=== PATIENT | female | born 1990 | race Two or more races ===

== ENCOUNTER 2017-08-17 10:12 | Emergency (ER) | payer OTHER ==
[2017-08-17 10:24] VITALS: BP 111/65; PULSE 72; TEMP 99.2; BMI 36.8
[2017-08-17] MEDS ORDERED: TETANUS AND DIPHTHERIA TOXOID 0.5 ML DISP.SYRIN IM ONE (10:56)
--- NOTE | 2017-08-17 11:01 | PDOC ---
Post Exposure HPI - General Chief Complaint: Blood/Body Fluid Exposure SJR Stated Complaint: NEEDLE STICK Time Seen by Provider: 08/17/17 10:55 History Source: Patient Exam Limitations: No Limitations - History of Present Illness Initial Comments: 08/17/17 10:[address] Hendrix's office, [facility] sustained a needlestick injury from a Vacutainer that was our to used to her right thumb. Washed with soap and water, alcohol. was able to identify her's source patient who is well known to their office and currently under treatment for cancer and obtained testing for hepatitis B, C and HIV disease. Timing: this morning Exposed Location: Right: Finger(s) (thumb) Assessing Significant Risk PEP: Yes Percutaneous, Yes Blood, Yes Potentially Infectious Fluid Past History - Travel Traveled outside of the country in the last 30 days: No Close contact w/someone who was outside of country & ill: No - Past Medical History Allergies/Adverse Reactions: Allergies Allergy/AdvReac Type Severity Reaction Status Date / Time Iodinated Contrast- Oral and Allergy Verified 08/17/17 10:20 IV Dye Home Medications: Ambulatory Orders NK [No Known Home Medication] 07/06/16 Anemia: Yes Cancer: Yes (Breast, Colon) COPD: No - Surgical History Cholecystectomy: Yes GI Surgery: Yes (COLON RESECTION) - Immunization History Immunization Up to Date: Yes - Suicide/Smoking/Psychosocial Hx Smoking History: Never smoked Hx Alcohol Use: No Drug/Substance Use Hx: No Substance Use Type: None Review of Systems - Review of Systems Able to Perform ROS?: Yes Is the patient limited Cypriot proficient: Yes Constitutional: Yes: Symptoms Reported, See HPI HEENTM: Yes: See HPI. No: Symptoms Reported Respiratory: Yes: See HPI. No: Symptoms reported Musculoskeletal: Yes: See HPI. No: Symptoms Reported Integumentary: Yes: Symptoms Reported *Physical Exam - Vital Signs Last Vital Signs Temp Pulse Resp BP Pulse Ox 99.2 F 72 19 111/65 99 08/17/17 10:20 08/17/17 10:20 08/17/17 10:20 08/17/17 10:20 08/17/17 10:20 - Physical Exam General Appearance: Yes: Nourished, Appropriately Dressed, Apparent Distress HEENT: positive: IRINA, Normal ENT Inspection, TMs Normal, Pharynx Normal Neck: positive: Supple. negative: Tender, Lymphadenopathy (R), Lymphadenopathy (L) Respiratory/Chest: positive: Lungs Clear, Normal Breath Sounds Extremity: positive: Normal Capillary Refill, Normal Inspection, Normal Range of Motion Integumentary: positive: Normal Color, Dry, Warm, Other (puncture wound noted to the ulnar aspect of left thumb proximal phalanx, has full range of motion of thumb, no bruising or other deformity noted.) Neurologic: positive: roll off driver II-XII NML intact, Fully Oriented, Alert, Normal Mood/ Affect Post Exposure - ED Protocol - Exposure Treatment Washing/Decontamination: Soap/Water Source Patient HIV Status:: Unknown Is PEP indicated?: Yes Prophylaxis for HIV discussed?: Yes Prophylaxis given?: No Prophylaxis refused?: Yes Additional Treatment:: DT - Referrals Employee Referred to Employee Health:: Yes Progress Note - Progress Note Progress Note: Discussed HIV and hepatitis risks with puncture wound. Patient is well versed on prophylaxis and exposure protocols and has refused PEP. Tetanus is not up-to- date therefore that will be updated today, hepatitis B vaccines are up-to-date. Understands Baseline labs taken today and will follow up with occupational health for future testing. Source patient has been tested was well known to employee. Medical Decision Making - Medical Decision Making 08/17/17 12:34 HIV testing negative, remainder of labs within normal limits. Patient understands follow-up and will complete in occupational/employee health. *DC/Admit/Observation/Transfer Diagnosis at time of Disposition: Accidental needlestick injury with exposure to body fluid - Discharge Dispostion Disposition: HOME Condition at time of disposition: Stable Admit: No - Referrals - Patient Instructions Printed Discharge Instructions: How to Handle Body Fluid Exposure -- Healthcare Worker Additional Instructions: Rest, keep wound clean and dry, cover with bacitracin and Band-Aid until healed Baseline laboratory work obtained today You will need repeat testing in 3-6 months from occupational health Tetanus/diphtheria/pertussis booster was updated today - Post Discharge Activity Forms/Work/School Notes: Back to Work
[2017-08-17 11:22] LABS: BASO % 0.9 % (0-2.0); EOS % 0.7 % (0-4.5); HEMOGLOBIN 11.2 GM/dL (10.7-15.3); LYMPH % 27.9 % (8-40); MCH 23.1 pg (25.7-33.7); MCHC 31.2 g/dl (32.0-36.0); MEAN PLT VOLUME 8.5 fl (7.5-11.1); MONO % 9.6 % (3.8-10.2); NEUT % 60.9 % (42.8-82.8); PLATELET COUNT 239 K/MM3 (134-434); RBC 4.87 M/mm3 (3.60-5.2); RDW 15.1 % (11.6-15.6); WHITE BLOOD COUNT 6.7 K/mm3 (4.0-10.0)
[2017-08-17 11:25] LABS: HCG,QUALITATIVE URINE NEGATIVE
[2017-08-17 11:26] LABS: URINE APPEARANCE TURBID; URINE BILIRUBIN NEGATIVE (NEGATIVE); URINE BLOOD NEGATIVE (NEGATIVE); URINE COLOR YELLOW; URINE GLUCOSE (UA) NEGATIVE (NEGATIVE); URINE KETONE NEGATIVE (NEGATIVE); URINE LEUK ESTERASE NEGATIVE (NEGATIVE); URINE NITRITE NEGATIVE (NEGATIVE); URINE PROTEIN NEGATIVE (NEGATIVE); URINE UROBILINOGEN NEGATIVE mg/dL (0.2-1.0)
[2017-08-17 11:38] LABS: ALBUMIN 3.6 g/dl (3.4-5.0); ANION GAP 3 (8-16); BLOOD UREA NITROGEN 13 mg/dL (7-18); CHLORIDE 106 mmol/L (98-107); CHOLESTEROL 165 mg/dL (50-200); CO2 29 mmol/L (21-32); CREATININE 0.7 mg/dL (0.55-1.02); GAMMA GLUTAMYL TRANSPEPTIDASE 16 U/L (5-85); GLUCOSE,RANDOM 78 mg/dL (74-106); LDH 153 U/L (84-246); PHOSPHOROUS 3.1 mg/dL (2.5-4.9); POTASSIUM 3.9 mmol/L (3.5-5.1); SGOT/AST 16 U/L (15-37); SGPT/ALT 30 U/L (12-78); SODIUM 138 mmol/L (136-145); TOT PROT 7.2 g/dl (6.4-8.2); TRIGLYCERIDES 108 mg/dL (35-160); URIC ACID 4.5 mg/dL (2.6-7.2)
[2017-08-17 11:40] LABS: ALK PHOS 66 U/L (45-117); BILIRUBIN,TOTAL 0.4 mg/dL (0.2-1.0)
[2017-08-18 08:57] LABS: HBsAG SCREEN Negative (Negative); HEPATITIS B CORE ANTIBODY Negative (Negative)
== END 2017-08-17 12:39 | disposition home or self-care (01) ==
LOC: JERFT 10:12
PROC: 3E0234Z Introduction of Serum, Toxoid and Vaccine into Muscle, Percutaneous Approach (ICD-10-PCS; principal; 2017-08-17)
DX: Z77.21 Contact with and (suspected) exposure to potentially hazardous body fluids (principal); S61.032A Puncture wound without foreign body of left thumb without damage to nail, initial encounter; W46.1XXA Contact with contaminated hypodermic needle, initial encounter; Y93.F9 Activity, other caregiving; Y92.238 Other place in hospital as the place of occurrence of the external cause; Y99.0 Civilian activity done for income or pay; Z85.038 Personal history of other malignant neoplasm of large intestine; Z85.3 Personal history of malignant neoplasm of breast
CPT/HCPCS: 36415; 80053; 81003; 82465; 82977; 83615; 84100; 84478; 84550; 84703; 85025; 86704; 86803; 87340; 87389; 99282-25

== ENCOUNTER 2017-12-15 10:48 | Emergency (ER) | payer OTHER ==
[2017-12-15 11:03] VITALS: BP 101/49; PULSE 85; TEMP 98.8; BMI 37.0
--- NOTE | 2017-12-15 11:14 | PDOC ---
History of Present Illness - General Chief Complaint: Sore Throat Stated Complaint: SORE THROAT Time Seen by Provider: 12/15/17 10:57 - History of Present Illness Initial Comments: Female presents for evaluation of sore throat 5 days. She complains of fever about 3 days ago she took Motrin which resolved her fever and her throat has been consistent. She denies chills or night sweats. 12/15/17 11:11 Past History - Past Medical History Allergies/Adverse Reactions: Allergies Allergy/AdvReac Type Severity Reaction Status Date / Time Iodinated Contrast- Oral and Allergy Verified 12/15/17 10:50 IV Dye Home Medications: Ambulatory Orders Amoxicillin - [Amoxicillin 500mg Capsule -] 500 mg PO DAILY #30 capsule Methylprednisolone [Medrol Dose Ryan] 4 mg PO ASDIR #21 tablet 12/15/17 Anemia: Yes Cancer: Yes (Breast, Colon) COPD: No HTN: No (LOW BP) - Surgical History Abdominal Surgery: Yes (ECTOPIC) Cholecystectomy: Yes GI Surgery: Yes (COLON RESECTION) - Immunization History Immunization Up to Date: Yes - Suicide/Smoking/Psychosocial Hx Smoking History: Never smoked Have you smoked in the past 12 months: No Information on smoking cessation initiated: No Hx Alcohol Use: No Drug/Substance Use Hx: No Substance Use Type: None Review of Systems - Review of Systems Constitutional: Yes: Fever, Malaise. No: Chills, Diaphoresis, Night Sweats HEENTM: Yes: Throat Pain, Throat Swelling, Mouth Pain, Difficulty Swallowing. No: Ear Pain, Ear Discharge, Mouth Swelling Respiratory: No: Cough, SOB with Exertion Cardiac (ROS): No: Chest Pain ABD/GI: No: Nausea, Vomiting All Other Systems: Reviewed and Negative *Physical Exam - Vital Signs Last Vital Signs Temp Pulse Resp BP Pulse Ox 98.8 F 85 18 101/49 100 12/15/17 10:50 12/15/17 10:50 12/15/17 10:50 12/15/17 10:50 12/15/17 10:50 - Physical Exam Comments: General Appearance: Well-developed, well-nourished A&O 3 NAD Head: NC/AT Eyes: vision is grossly intact Ears: External auditory canals are normal and clear; tympanic membranes are normal; hearing is grossly intact Nose: Normal no discharge Throat and Oral cavity: Pharynx imjected with mild swelling no exudate no lesions teeth and gingiva are normal Neck: Supple nontender without lymphadenopathy masses or thyromegaly Cardiac: S1 and S2 without murmurs no peripheral edema cyanosis or pallor; extremities are warm and well-perfused; capillary refill is less than 2 seconds without carotid bruits Lungs: CTA and Percussion no rales or rhonchi or wheezing breath sounds are full bilaterally Abdomen: Positive bowel sounds; soft nondistended, nontender, no guarding or rebound tenderness; no masses Musculoskeletal; Adequately aligned spine range of motion intact to spine and extremities Neurologic: Cranial nerves II-XII are grossly intact strength and sensation are symmetric and intact cerebellar testing is negative Skin: Normal color and temperature normal texture turgor no lesions or eruptions 12/15/17 11:12 Medical Decision Making - Medical Decision Making Strep positive culture with amoxicillin and Medrol Dosepak follow-up with her PCP in 3-4 days return to the emergency room symptoms worsen or don't resolve prior to follow-up 12/15/17 11:30 *DC/Admit/Observation/Transfer Diagnosis at time of Disposition: Strep pharyngitis - Discharge Dispostion Condition at time of disposition: Stable Decision to Admit order: No - Referrals Referrals: Koffi Cole MD [Staff Physician] - - Patient Instructions Printed Discharge Instructions: DI for Strep Throat, Strep Throat Additional Instructions: Warm salt water gargles 5-6 times daily Tylenol if needed. Return to the emergency room if symptoms increase or don't resolve prior to follow-up - Post Discharge Activity
[2017-12-15] MEDS ORDERED: AMOXICILLIN 500 MG CAPSULE (FP) PO ONE (11:38)
[2017-12-15] MEDS ORDERED: PENICILLIN G BENZATHINE 2,400,000 UNIT/4 ML PFS ONE (11:41)
[2017-12-15] MEDS ORDERED: AMOXICILLIN 250 MG CAPSULE ONE (11:43)
== END 2017-12-15 11:48 | disposition home or self-care (01) ==
LOC: JER 10:48
DX: J02.0 Streptococcal pharyngitis (principal); B95.0 Streptococcus, group A, as the cause of diseases classified elsewhere; Z85.038 Personal history of other malignant neoplasm of large intestine; Z85.3 Personal history of malignant neoplasm of breast
CPT/HCPCS: 87070; 87430; 99281-25

== ENCOUNTER 2018-05-11 11:34 | Day surgery (SDC) | payer OTHER ==
[2018-05-11] MEDS ORDERED: IRON SUCROSE INJECTION 200 MG in SODIUM CHLORIDE 100 ML IVPB ONE (12:45)
[2018-05-11 14:43] VITALS: TEMP 98.2
[2018-05-11 14:45] VITALS: BP 98/60; PULSE 69
== END 2018-05-11 14:25 | disposition home or self-care (01) ==
LOC: JONCNONCHE 11:34 → J7W 12:25 → JONCNONCHE 14:25
PROVIDERS: ATTEND Internal Medicine Hematology & Oncology
PROC: 3E033GC Introduction of Other Therapeutic Substance into Peripheral Vein, Percutaneous Approach (ICD-10-PCS; principal; 2018-05-11)
DX: D50.9 Iron deficiency anemia, unspecified (principal)
CPT/HCPCS: 36415; 82962; 83021; 85660; 96365; J1756

== ENCOUNTER 2018-05-19 07:39 | Day surgery (SDC) | payer OTHER ==
[2018-05-19] MEDS ORDERED: IRON SUCROSE INJECTION 200 MG in SODIUM CHLORIDE 100 ML IVPB ONE (10:00)
[2018-05-19 17:59] VITALS: TEMP 98
[2018-05-19 18:03] VITALS: BP 101/59; PULSE 74
== END 2018-05-19 14:45 | disposition home or self-care (01) ==
LOC: JONCNONCHE 07:39 → J7W 13:59 → JONCNONCHE 14:45
PROVIDERS: ATTEND Internal Medicine Hematology & Oncology
PROC: 3E033GC Introduction of Other Therapeutic Substance into Peripheral Vein, Percutaneous Approach (ICD-10-PCS; principal; 2018-05-19)
DX: D50.9 Iron deficiency anemia, unspecified (principal)
CPT/HCPCS: 96365; J1756

== ENCOUNTER 2018-05-26 07:30 | Day surgery (SDC) | payer OTHER ==
[2018-05-26 08:47] VITALS: BP 104/54; PULSE 61
[2018-05-26] MEDS ORDERED: IRON SUCROSE INJECTION 200 MG in SODIUM CHLORIDE 100 ML IVPB ONE (10:00)
== END 2018-05-26 09:15 | disposition home or self-care (01) ==
LOC: JONCNONCHE 07:30 → J7W 08:24 → JONCNONCHE 09:15
PROVIDERS: ATTEND Internal Medicine Hematology & Oncology
PROC: 3E033GC Introduction of Other Therapeutic Substance into Peripheral Vein, Percutaneous Approach (ICD-10-PCS; principal; 2018-05-26)
DX: D50.9 Iron deficiency anemia, unspecified (principal)
CPT/HCPCS: 96365; J1756

== ENCOUNTER 2018-06-02 07:49 | Day surgery (SDC) | payer OTHER ==
[2018-06-02] MEDS ORDERED: IRON SUCROSE INJECTION 200 MG in SODIUM CHLORIDE 100 ML IVPB ONE (10:00)
[2018-06-02 12:07] VITALS: BP 104/50; PULSE 80; TEMP 98.2
== END 2018-06-02 12:08 | disposition home or self-care (01) ==
LOC: JONCCHEMO 07:49 → J7W 11:30 → JONCCHEMO 12:08
PROVIDERS: ATTEND Internal Medicine Hematology & Oncology
PROC: 3E033GC Introduction of Other Therapeutic Substance into Peripheral Vein, Percutaneous Approach (ICD-10-PCS; principal; 2018-06-02)
DX: D50.9 Iron deficiency anemia, unspecified (principal)
CPT/HCPCS: 96365; J1756

== ENCOUNTER 2018-07-30 11:06 | Day surgery (SDC) | payer OTHER ==
[2018-07-30 09:59] LABS: BASO % 0.9 % (0-2.0); EOS % 1.2 % (0-4.5); HEMATOCRIT 40.6 % (32.4-45.2); HEMOGLOBIN 12.6 GM/dL (10.7-15.3); LYMPH % 27.2 % (8-40); MCH 24.7 pg (25.7-33.7); MEAN CELL VOLUME 79.5 fl (80-96); MEAN PLT VOLUME 8.5 fl (7.5-11.1); MONO % 9.4 % (3.8-10.2); NEUT % 61.3 % (42.8-82.8); PLATELET COUNT 207 K/MM3 (134-434); RDW 19.8 % (11.6-15.6); WHITE BLOOD COUNT 5.1 K/mm3 (4.0-10.0)
[2018-07-30 10:39] LABS: ALBUMIN 3.6 g/dl (3.4-5.0); ALK PHOS 62 U/L (45-117); ANION GAP 8 MMOL/L (8-16); BILIRUBIN,TOTAL 0.3 mg/dL (0.2-1); BLOOD UREA NITROGEN 10 mg/dL (7-18); CALCIUM 8.9 mg/dL (8.5-10.1); CHLORIDE 104 mmol/L (98-107); CO2 25 mmol/L (21-32); CREATININE 0.6 mg/dL (0.55-1.3); GLUCOSE,RANDOM 81 mg/dL (74-106); SGOT/AST 25 U/L (15-37); SGPT/ALT 40 U/L (13-61); SODIUM 138 mmol/L (136-145); TOT PROT 7.1 g/dl (6.4-8.2)
[2018-07-30] MEDS ORDERED: IRON SUCROSE INJECTION 200 MG in SODIUM CHLORIDE 100 ML IVPB ONE (13:00)
[2018-07-30 14:58] VITALS: TEMP 97.7
[2018-07-30 15:02] VITALS: BP 98/47; PULSE 76
[2018-07-31 04:17] LABS: SERUM IRON SATURATION 15 % (15-55); TOTAL IRON BINDING CAPACITY 402 ug/dL (250-450); UIBC 342 ug/dL (131-425)
== END 2018-07-30 14:25 | disposition home or self-care (01) ==
LOC: JONCNONCHE 11:06 → EDSTATUS 11:09 → J7W 13:13 → JONCNONCHE 14:25
PROVIDERS: ATTEND Internal Medicine Hematology & Oncology
CPT/HCPCS: 36415; 80053; 82728; 83540; 83550; 85025; 96365; J1756